=== PATIENT | male | born 1965 | race Caucasian/White ===

== ENCOUNTER 2021-06-16 17:09 | Emergency (ER) | payer BC ==
[~2021-06-16] VITALS: Ht 170.1 cm; Wt 72.6 kg
[~2021-06-16 17:09] MED LIST: ATIVAN1 MG PO; FLEXERIL10 MG PO; HYDROCODONE BIT1 T11 PO; MEDROL DOSEPAK4 MG PO; NAPROSYN500 MG PO; NKHM
[2021-06-16] MEDS ORDERED: CEPHALEXIN500 M1 PO (20:23)
== END 2021-06-16 20:36 | disposition home or self-care (01) ==
LOC: ED 17:09
DX: S61.412A Laceration without foreign body of left hand, initial encounter (principal); Z88.1 Allergy status to other antibiotic agents; Z79.899 Other long term (current) drug therapy; W31.89XA Contact with other specified machinery, initial encounter; Y93.89 Activity, other specified; Y92.89 Other specified places as the place of occurrence of the external cause; Y99.8 Other external cause status

== ENCOUNTER → 2022-06-06 | Outpatient (CLI) | payer BC ==
[~2022-06-06] MED LIST changes: +CEPHALEXIN500 M1 PO
[2022-06-09 06:07] LABS: FREE PSA 0.137 ng/mL (.)
== END | disposition home or self-care (01) ==
LOC: LAB 11:10
PROVIDERS: ATTEND Nurse Practitioner Family
DX: N42.9 Disorder of prostate, unspecified (principal)

== ENCOUNTER → 2022-07-29 | Outpatient (CLI) | payer BC ==
[2022-07-29 10:27] LABS: BUN 18 mg/dl (7-24); CREATININE 0.92 mg/dL (0.70-1.30)
== END | disposition home or self-care (01) ==
LOC: LAB 09:24 → CT 10:00
PROVIDERS: ATTEND Urology
DX: K44.9 Diaphragmatic hernia without obstruction or gangrene (principal); K76.0 Fatty (change of) liver, not elsewhere classified; N42.0 Calculus of prostate; J98.11 Atelectasis

== ENCOUNTER 2025-06-08 13:00 | Emergency (ER) | payer BC ==
[~2025-06-08] VITALS: Ht 170.1 cm; Wt 81.6 kg
[2025-06-08 14:07] LABS: BASO # 0.0 10*3/uL (0.0-0.1); BASO % 0.3 % (0.0-1.0); EOS # 0.1 10*3/uL (0.0-0.4); EOS % 1.0 % (1.0-4.0); MEAN CELL VOLUME 93.6 fl (80.0-94.0); MEAN CORPUSCULAR HGB 30.6 pg (27.0-31.0); MEAN PLATELET VOLUME 9.1 fl (9.6-12.3); MONO # 0.9 10*3/uL (0.1-1.0); MONO % 9.7 % (3.0-9.0); NEUT # 5.4 10*3/uL (2.3-7.9); NEUT % 61.4 % (47.0-73.0); NUCLEATED RED BLOOD CELL 0.0 % (0.0-0.0); NUCLEATED RED BLOOD CELL 0.0 10*3/uL (0.0-0.0); PLATELET COUNT AUTOMATED 229 10*3/uL (130-400); RED CELL DISTRI WIDTH 12.7 % (0-14.5)
[2025-06-08 14:18] LABS: ACT PARTIAL THROMBO TIME 27.9 SECONDS (20.0-32.1)
[2025-06-08 14:31] LABS: BUN 18 mg/dl (9-23)
[2025-06-08] MEDS ORDERED: SODIUM CHLORIDE 0.9% 1,000 ML IV ONE (14:45)
[2025-06-08 17:19] LABS: BILIRUBIN Negative (Negative); BLOOD 1+ (Negative); CLARITY Clear (Clear); COLOR Yellow (Yellow); KETONE Trace (Negative); LEUKO ESTERASE Negative (Negative); NITRITE Negative (Negative); PH 6.0 (4.5-8.0); SPECIFIC GRAVITY 1.025 (1.001-1.030); UROBILINOGEN 1.0 E.U./dl (0.0-1.0)
[2025-06-08 17:25] LABS: BACTERIA 1+; MUCOUS 2+
[2025-06-08] MEDS ORDERED: AMOX-CLAV 875-1 EACH PO (17:30)
[2025-06-08] MEDS ORDERED: Amoxicillin/Clavulanate Pota 875 MG TAB PO ONE (17:45)
== END 2025-06-08 17:45 | disposition home or self-care (01) ==
LOC: ED 13:00
PROVIDERS: Internal Medicine
DX: J40 Bronchitis, not specified as acute or chronic (principal); R51.9 Headache, unspecified; R07.89 Other chest pain; H53.8 Other visual disturbances; Z88.1 Allergy status to other antibiotic agents; Z79.899 Other long term (current) drug therapy